=== PATIENT | male | born 1985 | race Caucasian/White ===

== ENCOUNTER 2017-04-08 18:24 | Emergency (ER) | payer BC ==
[~2017-04-08] VITALS: Ht 172.7 cm; Wt 61.2 kg
[2017-04-08 18:30] VITALS: BP 132/84
[2017-04-08] MEDS ORDERED: CLON1TAB3 PO (19:13)
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
== END 2017-04-08 19:22 | disposition home or self-care (01) ==
LOC: ER 18:24
DX: Z76.0 Encounter for issue of repeat prescription (principal); F41.9 Anxiety disorder, unspecified; F32.9 Major depressive disorder, single episode, unspecified
CPT/HCPCS: 99283

== ENCOUNTER 2017-05-28 11:51 | Emergency (ER) | payer BC ==
[~2017-05-28] VITALS: Ht 182.9 cm; Wt 68.0 kg
[~2017-05-28 11:51] MED LIST: CLON1TAB3 PO
[2017-05-28 12:00] VITALS: BP 131/75
--- NOTE | 2017-05-28 12:27 | RAD ---
Exam: Left hand radiograph 05/28/2017 at 1202 hours Indication: Left hand pain after fall Comparison: None available Technique: 3 views of the left hand are provided. Findings: There is no acute fracture or dislocation. No joint space narrowing. No soft tissue swelling. No osseous erosion or soft tissue gas. Bone mineralization is within normal limits. Impression: No acute fracture or dislocation.
--- NOTE | 2017-05-28 12:28 | RAD ---
Exam: Left shoulder radiograph 05/28/2017 at 1202 hours Indication: Fall from trampoline Comparison: None available Technique: 3 views of the left shoulder are provided. Findings: There is no acute fracture or dislocation of the glenohumeral and acromioclavicular joints. No joint space narrowing. No soft tissue swelling. No osseous erosion or soft tissue gas. Bone mineralization is within normal limits. Impression: No acute fracture or dislocation.
--- NOTE | 2017-05-28 13:00 | PHYS DOC ---
Past Medical History Past Medical History: Anxiety, Depression Past Surgical History: No Surgical History Alcohol Use: None Drug Use: None Adult General Chief Complaint Chief Complaint: HAND PROBLEM HPI HPI Patient is a 32 year old male who presents with swelling and pain to left hand and left shoulder. The patient was jumping on a trampoline yesterday when the injuries occurred. He denies loss of consciousness or other injury. He has been taking ibuprofen for pain. Review of Systems Review of Systems Constitutional: Denies fever or chills [] Respiratory: Denies cough or shortness of breath [] Cardiovascular: No additional information not addressed in HPI [] Musculoskeletal: See history of present illness Integument: Denies rash or skin lesions [ Neurologic: Denies headache, focal weakness or sensory changes [] Endocrine: Denies polyuria or polydipsia [] Allergies Allergies Allergies Coded Allergies Type Severity Reaction Last Updated Verified bupropion Allergy Intermediate 04/08/17 Yes Physical Exam Physical Exam Constitutional: Well developed, well nourished, no acute distress, non-toxic appearance. [] Cardiovascular:Heart rate regular rhythm, no murmur [] Lungs & Thorax: Bilateral breath sounds clear to auscultation [] Skin: Warm, dry, no erythema, no rash. [] Back: No tenderness, no CVA tenderness. [] Extremities: tenderness to left third and fourth metacarpals with swelling present, pulses and sensation are intact, shoulder has point tenderness at the ac joint, no cyanosis, no clubbing, ROM intact, Neurologic: Alert and oriented X 3, normal motor function, normal sensory function, no focal deficits noted. [] Psychologic: Affect normal, judgement normal, mood normal. [] Current Patient Data Vital Signs Vital Signs Date Time Temp Pulse Resp B/P (MAP) Pulse Ox O2 Delivery O2 Flow Rate FiO2 05/28/17 12:00 98.2 74 16 98 Room Air 98.2 EKG EKG [] Radiology/Procedures Radiology/Procedures [] PATIENT: SANDRA LACY ACCOUNT: [id number] : 1985 LOCATION: ER AGE: 32 SEX: M EXAM STATUS: PRE ER ORD. PHYSICIAN: ELLE BARROW APRN REASON: fell of trampoline PROCEDURE: HAND LEFT 3V Exam: Left hand radiograph 05/28/2017 at 1202 hours Indication: Left hand pain after fall Comparison: None available Technique: 3 views of the left hand are provided. Findings: There is no acute fracture or dislocation. No joint space narrowing. No soft tissue swelling. No osseous erosion or soft tissue gas. Bone mineralization is within normal limits. Impression: No acute fracture or dislocation. DICTATED and SIGNED BY: REJI BOBBY MD DATE: 05/28/17 1224 CC: ELLE BARROW APRN; NO PCP ~ Impressions: PATIENT: SANDRA LACY ACCOUNT: [id number] : 1985 LOCATION: ER AGE: 32 SEX: M EXAM STATUS: PRE ER ORD. PHYSICIAN: ELLE BARROW APRN REASON: fell of [employer] PROCEDURE: SHOULDER 2+V LEFT Exam: Left shoulder radiograph 05/28/2017 at 1202 hours Indication: Fall from trampoline Comparison: None available Technique: 3 views of the left shoulder are provided. Findings: There is no acute fracture or dislocation of the glenohumeral and acromioclavicular joints. No joint space narrowing. No soft tissue swelling. No osseous erosion or soft tissue gas. Bone mineralization is within normal limits. Impression: No acute fracture or dislocation. DICTATED and SIGNED BY: REJI BOBBY MD DATE: 05/28/17 1225 CC: ELLE BARROW APRN; NO PCP ~ Course & Med Decision Making Course & Med Decision Making Pertinent Labs and Imaging studies reviewed. (See chart for details) []1. Contusion 2. Shoulder pain The patient is being placed and a sling with a splint that hand for comfort measures. He is to continue with ibuprofen as needed for pain. Follow-up with your primary care provider in one week if not improving or return to the ED if worsening. Dragon Disclaimer Dragon Disclaimer This electronic medical record was generated, in whole or in part, using a voice recognition dictation system. Departure Departure Referrals: NO PCP (PCP) ELLE BARROW APRN May 28, 2017 13:00
== END 2017-05-28 13:13 | disposition home or self-care (01) ==
LOC: ER 11:51
DX: S60.222A Contusion of left hand, initial encounter (principal); S40.012A Contusion of left shoulder, initial encounter; F32.9 Major depressive disorder, single episode, unspecified; F41.9 Anxiety disorder, unspecified; X58.XXXA Exposure to other specified factors, initial encounter; Y93.44 Activity, trampolining; Y92.89 Other specified places as the place of occurrence of the external cause; Y99.8 Other external cause status
CPT/HCPCS: 73030; 73130; 99284

== ENCOUNTER 2017-08-27 16:19 | Emergency (ER) | payer BC ==
[~2017-08-27] VITALS: Ht 182.9 cm; Wt 63.5 kg
[2017-08-27 17:10] VITALS: BP 138/68
[2017-08-27] MEDS ORDERED: SERT100T PO ×2 (17:10→17:15)
[2017-08-27] MEDS ORDERED: CLON0.5T3 PO (17:15)
--- NOTE | 2017-08-27 18:05 | PHYS DOC ---
Past Medical History Past Medical History: Anxiety, Depression Past Surgical History: No Surgical History Alcohol Use: None Drug Use: None Adult General Chief Complaint Chief Complaint: MEDICATION REFILL [facility] HPI Patient is a 32 year old male who presents with a need for medication refill. The patient lost his insurance and was unable to receive care. He did just obtain a new policy and has an appointment for mid September for a new psychiatrist. He has run out of his Zoloft and his clonazepam. He states that his medications ran out approximately 1 week ago. He has been having panic attacks daily to multiple times daily since. The patient has been diagnosed with panic disorder and agoraphobia. He states that he is not suicidal and does not have any plans. Review of Systems Review of Systems Constitutional: Denies fever or chills [] Respiratory: Denies cough or shortness of breath [] Cardiovascular: No additional information not addressed in HPI [] Neurologic: Denies headache, focal weakness or sensory changes [] All other systems were reviewed and found to be within normal limits, except as documented in this note. Allergies Allergies Allergies Coded Allergies Type Severity Reaction Last Updated Verified bupropion Allergy Intermediate 04/08/17 Yes Physical Exam Physical Exam Constitutional: Well developed, well nourished, no acute distress, non-toxic appearance. [] Cardiovascular:Heart rate regular rhythm, no murmur [] Lungs & Thorax: Bilateral breath sounds clear to auscultation [] Abdomen: Bowel sounds normal, soft, no tenderness, no masses, no pulsatile masses. [] Neurologic: Alert and oriented X 3, normal motor function, normal sensory function, no focal deficits noted. [] Psychologic: Affect normal, judgement normal, mood anxious. [] Current Patient Data Vital Signs Vital Signs Date Time Temp Pulse Resp B/P (MAP) Pulse Ox O2 Delivery O2 Flow Rate FiO2 08/27/17 17:10 98.7 78 16 97 Room Air 98.7 EKG EKG [] Radiology/Procedures Radiology/Procedures [] Course & Med Decision Making Course & Med Decision Making Pertinent Labs and Imaging studies reviewed. (See chart for details) []1. Medication refill 2. Anxiety The patient has been given a one-month supply of his medications until he can be seen by his new psychiatrist. We discussed medication refills in the emergency department and he understands that it is a last resort. Dragon Disclaimer Dragon Disclaimer This electronic medical record was generated, in whole or in part, using a voice recognition dictation system. Departure Departure Impression: Primary Impression: Medication refill Disposition: 01 HOME, SELF-CARE Condition: STABLE Referrals: NO PCP (PCP) Patient Instructions: Medication Refill, Emergency Department, Anxiety and Panic Attacks Additional Instructions: Keep your scheduled appointment for September 25, 2017 for establishment with your new psychiatric practice. If worsening please return to the ED immediately. Scripts Clonazepam (CLONAZEPAM) 0.5 Mg Tablet 1 TAB PO TID, #90 TAB Prov: ELLE BARROW APRN 08/27/17 Sertraline Hcl (ZOLOFT) 100 Mg Tablet 1 TAB PO BID for panic disorder, #60 TAB 5 Refills Prov: LELE BARROW APRN 08/27/17 ELLE BARROW APRN Aug 27, 2017 18:05
== END 2017-08-27 17:15 | disposition home or self-care (01) ==
LOC: ER 16:19
DX: Z76.0 Encounter for issue of repeat prescription (principal); F41.9 Anxiety disorder, unspecified; F32.9 Major depressive disorder, single episode, unspecified; Z88.8 Allergy status to other drugs, medicaments and biological substances
CPT/HCPCS: 99283